=== PATIENT | female | born 1940 | race Caucasian/White ===

== ENCOUNTER 2021-11-01 01:34 | Day surgery (SDC) | payer MEDICARE, SELFPAY ==
[2021-10-19 10:46] VITALS: BMI 21.0
--- NOTE | 2021-10-31 17:13 | PM.HPGS ---
History of Present Illness History of Present Illness Consent: Risks, benefits, and alternatives have been discussed and questions answered. Patient agrees to proceed with procedure. Chief complaint: colitis Narrative: Rose Matt is a 80 year old female who is here for investigation of loose stools. For the past 6 months she has had loose or mushy stools. She was diagnosed with collagenous colitis about 7 years ago. She took budesonide for a month or 2, tapering off of it. she believes that she actually took 2 separate short courses of it. She is not certain that it had a significant effect on her stools back then, but actually she had been having fairly normal bowel movements without medication for the past 5 years until these recent symptoms began. Review of Systems Review of Systems: All systems reviewed & are unremarkable except as noted in HPI and below PMFSH Surgical History Surgical History H/O tubal ligation Social History Social History Smoking packs per day: 1 Smoking cigarettes per day: 20.0 Years smoked: 35 Smoking pack-years: 35.00 Smoking status: Former smoker Second hand tobacco smoke exposure: No Alcohol intake: current Drinks per week: 3 Substance use: never Substance use type: does not use Living arrangements: with family Gender identity (if verbalized by the patient): Female Spiritual care concerns: No Meds Home Medications and Allergies Home Medications Medication Instructions Recorded Confirmed Type calcium carbonate 250 mg-vitamin 1 tablet PO DAILY 09/26/21 11/01/21 History D3 3.125 mcg (125 unit) tablet cyanocobalamin (vitamin B-12) 1,000 mcg PO DAILY 09/26/21 11/01/21 History 1,000 mcg capsule levothyroxine 75 mcg capsule 75 mcg PO DAILY 09/26/21 11/01/21 History sitagliptin 100 mg tablet (Januvia) 100 mg PO DAILY 09/26/21 11/01/21 History biotin 2,500 mcg capsule 2,500 mcg PO DAILY 10/19/21 11/01/21 History estradiol 0.01% (0.1 mg/gram) 1 applic vaginal DAILY 10/19/21 11/01/21 History vaginal cream glimepiride 1 mg tablet 1 mg PO DAILY 10/19/21 11/01/21 History loratadine 10 mg tablet (Claritin) 10 mg PO DAILY PRN Allergy Symptoms 10/19/21 11/01/21 History simvastatin 20 mg tablet 20 mg PO DAILY 10/19/21 11/01/21 History Allergies Allergy/AdvReac Type Severity Reaction Status Date / Time No Known Allergies Allergy Verified 11/01/21 07:23 Exam Resp: Auscultation: clear to auscultation bilaterally Cardio: Rate: regular rate Rhythm: regular rhythm GI: GI Palp: Yes Soft to palpation and No Tenderness to palpation present (GI) Assessment and Plan Assessment and plan (1) Collagenous colitis: Code(s): K52.831 - Collagenous colitis Status: Acute Assessment and Plan: Colonoscopy with possible biopsy or polypectomy or cautery or injection of substances.
[2021-11-01 07:27] VITALS: BP 154/55; PULSE 61; RESP 16; TEMP 36.3; O2SAT 97
[2021-11-01] MEDS: LACTATED RINGERS 1,000 ML 150 ML IV CONT (07:36)
[2021-11-01 07:38] LABS: Glucose Point of Care 103 mg/dl (65-105)
--- NOTE | 2021-11-01 08:00 | WPDANESEPPF ---
Anes - Initial Pre Proc Eval Procedure: Operation Date: 11/01/21 08:30 Proposed Procedures p Colonoscopy - Dash Diop MD Date/Time: 11/01/21 08:00 Surgeon: Dash Diop MD Pre Op Diagnosis: colitis Patient Data Age: 80 Gender: F Height: 1.68 m Weight: 59.1 kg Last Vital Signs Temp 97.3 F L 11/01/21 07:27 Pulse 61 11/01/21 07:27 Resp 16 11/01/21 07:27 BP 154/55 H 11/01/21 07:27 Pulse Ox 97 11/01/21 07:27 O2 Del Method Room Air 11/01/21 07:27 Allergies Allergy/AdvReac Type Severity Reaction Status Date / Time No Known Allergies Allergy Verified 11/01/21 07:23 Home Medications Medication Instructions Recorded Confirmed Type calcium carbonate 250 mg-vitamin 1 tablet PO DAILY 09/26/21 11/01/21 History D3 3.125 mcg (125 unit) tablet cyanocobalamin (vitamin B-12) 1,000 mcg PO DAILY 09/26/21 11/01/21 History 1,000 mcg capsule levothyroxine 75 mcg capsule 75 mcg PO DAILY 09/26/21 11/01/21 History sitagliptin 100 mg tablet (Januvia) 100 mg PO DAILY 09/26/21 11/01/21 History biotin 2,500 mcg capsule 2,500 mcg PO DAILY 10/19/21 11/01/21 History estradiol 0.01% (0.1 mg/gram) 1 applic vaginal DAILY 10/19/21 11/01/21 History vaginal cream glimepiride 1 mg tablet 1 mg PO DAILY 10/19/21 11/01/21 History loratadine 10 mg tablet (Claritin) 10 mg PO DAILY PRN Allergy Symptoms 10/19/21 11/01/21 History simvastatin 20 mg tablet 20 mg PO DAILY 10/19/21 11/01/21 History Laboratory Tests 11/01/21 07:32 POC Capillary Glucose 103 mg/dl mg/dl (65-105) Patient hx anesthesia problems: none Family hx anesthesia problems: none Results Review: All pre-operative results and documents have been reviewed as part of the pre-operative evaluation. [facility] Surgical History Surgical History H/O tubal ligation Social History Social History Smoking packs per day: 1 Smoking cigarettes per day: 20.0 Years smoked: 35 Smoking pack-years: 35.00 Smoking status: Former smoker Second hand tobacco smoke exposure: No Alcohol intake: current Drinks per week: 3 Substance use: never Substance use type: does not use Living arrangements: with family Gender identity (if verbalized by the patient): Female Spiritual care concerns: No Anes - Eval Final PreProcedure Day of Procedure 11/01/21 08:00 Patient weight: normal Heart: regular rate and rhythm Lungs: clear to auscultation Airway: Mallampati scale class II Neurological: alert and oriented Last oral intake: >/= 8 hours ASA classification: II Emergent: no Anesthetic plan: proceed Anesthesia type and monitoring: general GIVS and standard monitoring Results Review: All pre-operative results and documents have been reviewed as part of the pre-operative evaluation. Informed Consent: The patient's anesthetic plan and its attendant risks and benefits were discussed with the patient/family/POA. Questions were solicited and answers provided to the satisfaction of the patient/family/POA.
[2021-11-01 08:38] VITALS: BP 107/42; PULSE 57; RESP 20; O2SAT 100
[2021-11-01 08:48] VITALS: BP 125/61; PULSE 70; RESP 18; O2SAT 100
[2021-11-01 08:58] VITALS: BP 139/60; PULSE 67; RESP 20; O2SAT 100
== END 2021-11-01 09:10 | disposition home or self-care (01) ==
PROVIDERS: PCP Physician Assistant; Visit Provider Internal Medicine Gastroenterology
PROC: 0DJD8ZZ Inspection of Lower Intestinal Tract, Via Natural or Artificial Opening Endoscopic (ICD-10-PCS; CPT 45378; principal; 2021-11-01 08:30)
DX: K59.1 Functional diarrhea (principal); D12.8 Benign neoplasm of rectum; K52.831 Collagenous colitis; E03.9 Hypothyroidism, unspecified; Z87.891 Personal history of nicotine dependence; Z79.899 Other long term (current) drug therapy
CPT/HCPCS: 45380; 82948; 88305; J2001; J2704; J7120